=== PATIENT | male | born 2000 | race Hispanic/Latino ===

== ENCOUNTER 2021-09-23 23:49 | Inpatient (IN) | payer MEDICAID, SELFPAY ==
[2021-09-24] MEDS ORDERED: Acetaminophen 500 MG TAB ONE (00:34)
[2021-09-24 01:04] LABS: INR-International Normal Ratio 1.2; PTT 33.2 sec (22.9-36.1); Prothrombin Time 15.7 sec (12.0-14.7)
[2021-09-24 01:20] LABS: ALT (SGPT) 38 U/L (8-55); AST (SGOT) 18 U/L (5-34); Albumin 4.3 g/dL (3.5-5.0); Alkaline Phosphatase 103 U/L (40-110); Anion Gap 15 mmol/L (10-20); BUN (Urea Nitrogen) 9 mg/dL (8.9-20.6); Calc. Creatinine Clearance 0 mL/min (70-130); Carbon Dioxide 22 mmol/L (22-29); Chloride 105 mmol/L (98-107); Globulin 2.4 g/dL (2.4-3.5); Glucose 98 mg/dL (70-105); Lipase 6 U/L (8-78); Potassium 3.2 mmol/L (3.5-5.1); Protein, Total 6.7 g/dL (6.0-8.3); Sodium 139 mmol/L (136-145)
[2021-09-24 02:08] LABS: Hemoglobin 5.3 g/dL (14.0-18.0); Mean Corpuscular HGB CONC 25.6 g/dL (32.0-36.0); Mean Corpuscular Hemoglobin 14.3 pg (27.0-31.0); Mean Corpuscular Volume 55.7 fL (78.0-98.0); RBC Distribution Width 21.2 % (11.5-14.5); White Blood Cell (WBC) Count 10.4 thou/uL (4.8-10.8)
[2021-09-24 02:17] LABS: #Eosinphils 0.1 thou/uL (0.0-0.7); #Lymphocytes 1.4 thou/uL (1.20-3.40); #Neutrophils 7.9 thou/uL (1.40-6.50); %Basophils 0.4 % (0.0-1.0); %Eosinophils 0.7 % (0.0-10.0); %Lymphocytes 13.4 % (21.0-51.0); %Neutrophils 75.5 % (42.0-75.0); Band 4 % (5-11); Hypochromia MODERATE=16-30 cells (100X) (0-5/hpf); Lymphocytes 21 % (21-51); MDiff Complete? YES; Mean Platelet Volume 6.8 fL (7.4-10.4); Microcytosis SLIGHT = 6-15 cells (100X) (0-5/hpf); Monocytes 10 % (0-10); Neutrophil 65 % (42-75); Platelet Count 307 thou/uL (130-400); Platelet Morphology Comment Appears Adequate; Polychromasia SLIGHT = 2-3 cells (100X) (0-2/hpf)
[2021-09-24 02:54] LABS: Bilirubin 1+ (Negative); Blood, Urine Negative (Negative); Clarity Clear (Clear); Glucose, Urine (Dipstick) Normal (Negative); Ketone, Urine 10 mg/dL (Negative); Leukocyte Negative Leu/uL (Negative); Nitrite Negative (Negative); Protein, Urine (Dipstick) 20 mg/dL (Neg-Trace); Urobilinogen Greater than 12 mg/dL (Less than 2)
[2021-09-24 02:55] LABS: Specific Gravity, Urine Greater than 1.060 (1.002-1.036)
[2021-09-24] MEDS ORDERED: Ondansetron PF 4 MG/2 ML Vial IVP PRN (03:12)
[2021-09-24 03:14] LABS: SARS-CoV-2 NAA Rapid Test Not Detected (NotDetected)
[2021-09-24] MEDS ORDERED: diphenhydrAMINE 50 MG/ML VIAL IVP SCH (03:30)
[2021-09-24 03:33] VITALS: BMI 19.3
[2021-09-24 04:26] LABS: #Eosinphils 0.1 thou/uL (0.0-0.7); #Lymphocytes 1.3 thou/uL (1.20-3.40); #Monocytes 1.2 thou/uL (0.11-0.59); #Neutrophils 10.7 thou/uL (1.40-6.50); %Basophils 0.3 % (0.0-1.0); %Eosinophils 0.4 % (0.0-10.0); %Lymphocytes 9.6 % (21.0-51.0); %Monocytes 9.1 % (0.0-10.0); %Neutrophils 80.7 % (42.0-75.0); Hemoglobin 5.9 g/dL (14.0-18.0); Mean Corpuscular HGB CONC 26.2 g/dL (32.0-36.0); Mean Corpuscular Volume 53.3 fL (78.0-98.0); Mean Platelet Volume 7.4 fL (7.4-10.4); Platelet Count 426 thou/uL (130-400); RBC Distribution Width 21.8 % (11.5-14.5); Red Blood Cell (RBC) Count 4.19 mill/uL (4.70-6.10); White Blood Cell (WBC) Count 13.2 thou/uL (4.8-10.8)
[2021-09-24 04:44] LABS: ALT (SGPT) 46 U/L (8-55); AST (SGOT) 30 U/L (5-34); Albumin 4.4 g/dL (3.5-5.0); Alkaline Phosphatase 113 U/L (40-110); Anion Gap 13 mmol/L (10-20); BUN (Urea Nitrogen) 11 mg/dL (8.9-20.6); Bilirubin, Total 2.2 mg/dL (0.2-1.2); Calc. Creatinine Clearance 136 mL/min (70-130); Calcium 9.5 mg/dL (7.8-10.44); Carbon Dioxide 23 mmol/L (22-29); Chloride 106 mmol/L (98-107); Globulin 2.5 g/dL (2.4-3.5); Glucose 148 mg/dL (70-105); Potassium 3.2 mmol/L (3.5-5.1); Protein, Total 6.9 g/dL (6.0-8.3); Sodium 139 mmol/L (136-145)
[2021-09-24] MEDS ORDERED: Famotidine 20 MG TAB PO SCH (09:00)
[2021-09-24 10:35] LABS: Hemoglobin 6.8 g/dL (14.0-18.0)
[2021-09-24 11:16] LABS: Reticulocyte Count 1.2 % (0.5-1.5)
[2021-09-24 11:33] LABS: Iron 21 ug/dL (65-175); Iron Binding Capacity, Total 363 mcg/dL (261-462)
[2021-09-24 11:59] LABS: Ferritin Less than 2.00 ng/mL (22-322); Thyroid Stimulating Hormone 0.3425 uIU/mL (0.35-4.94); Vitamin B12 932 pg/mL (211-911)
[2021-09-24] MEDS ORDERED: Iopamidol-370 76% 500 ML 1 ML ONE (14:24)
[2021-09-24] MEDS: Potassium Chloride 10 MEQ in Dextrose 5%-Lactated Ringers 1,000 ML IV SCH ×2 (14:46→14:51)
[2021-09-24] MEDS ORDERED: Potassium Chloride 20 MEQ TAB PO SCH (15:00)
[2021-09-24] MEDS ORDERED: Iron, Sodium Ferric Gluconate 250 MG in Sodium Chloride 0.9% 100 ML IVPB SCH (15:00)
[2021-09-24] MEDS ORDERED: Iron, Sodium Ferric Gluconate 250 MG in Sodium Chloride 0.9% 250 ML 250 ML IVPB SCH (15:15)
[2021-09-24 15:38] LABS: Free T4 (Free Thyroxine) 0.98 ng/dL (0.70-1.48)
[2021-09-24 16:26] LABS: Hemoglobin 8.2 g/dL (14.0-18.0)
[2021-09-24] MEDS ORDERED: Bisacodyl 10 MG SUPP PR PRN (16:38)
[2021-09-24] MEDS: Fleet Enema 133 ML BOT PR SCH ×3 (18:08→23:25)
[2021-09-25] MEDS ORDERED: Ferrous Gluconate 324 MG TAB PO SCH (08:00)
[2021-09-25] MEDS: Polyethylene Glycol 3350 17 GM Packet PO SCH ×2 (08:48→19:59)
[2021-09-25] MEDS: Folic Acid 1 MG TAB PO SCH (08:48)
[2021-09-25] MEDS: Pantoprazole 40 MG VIAL IVP SCH (08:49)
[2021-09-25 11:48] LABS: Anion Gap 10 mmol/L (10-20); BUN (Urea Nitrogen) 7 mg/dL (8.9-20.6); Calc. Creatinine Clearance 157 mL/min (70-130); Calcium 8.4 mg/dL (7.8-10.44); Carbon Dioxide 24 mmol/L (22-29); Chloride 109 mmol/L (98-107); Glucose 86 mg/dL (70-105); Potassium 3.5 mmol/L (3.5-5.1); Sodium 139 mmol/L (136-145)
[2021-09-25] MEDS ORDERED: GoLYTELY 4,000 ml Bottle PO SCH (12:00)
[2021-09-25] MEDS: Fleet Enema 133 ML BOT PR SCH ×4 (12:02→18:59)
[2021-09-25 12:22] LABS: #Basophils 0.1 thou/uL (0.0-0.2); #Eosinphils 0.2 thou/uL (0.0-0.7); #Monocytes 0.8 thou/uL (0.11-0.59); %Basophils 0.9 % (0.0-1.0); %Eosinophils 2.2 % (0.0-10.0); %Lymphocytes 12.8 % (21.0-51.0); %Monocytes 9.5 % (0.0-10.0); %Neutrophils 74.6 % (42.0-75.0); Elliptocytes MODERATE= 6-15 cells (100X) (0-1/hpf); Hemoglobin 8.2 g/dL (14.0-18.0); Hypochromia MODERATE=16-30 cells (100X) (0-5/hpf); MDiff Complete? YES; Mean Corpuscular HGB CONC 27.7 g/dL (32.0-36.0); Mean Corpuscular Hemoglobin 18.3 pg (27.0-31.0); Mean Corpuscular Volume 66.1 fL (78.0-98.0); Mean Platelet Volume 7.6 fL (7.4-10.4); Microcytosis SLIGHT = 6-15 cells (100X) (0-5/hpf); Platelet Count 290 thou/uL (130-400); Platelet Morphology Comment Appears Adequate; Poikilocytosis MODERATE=16-30 cells (100X) (0-5/hpf); Polychromasia SLIGHT = 2-3 cells (100X) (0-2/hpf); RBC Distribution Width 32.3 % (11.5-14.5); Red Blood Cell (RBC) Count 4.45 mill/uL (4.70-6.10)
[2021-09-26 06:43] LABS: Anion Gap 11 mmol/L (10-20); BUN (Urea Nitrogen) 6 mg/dL (8.9-20.6); Calc. Creatinine Clearance 177 mL/min (70-130); Calcium 8.6 mg/dL (7.8-10.44); Carbon Dioxide 26 mmol/L (22-29); Chloride 107 mmol/L (98-107); Glucose 79 mg/dL (70-105); Potassium 3.7 mmol/L (3.5-5.1); Sodium 140 mmol/L (136-145)
[2021-09-26] MEDS: Folic Acid 1 MG TAB PO SCH (08:02)
[2021-09-26] MEDS: Polyethylene Glycol 3350 17 GM Packet PO SCH (08:02)
[2021-09-26] MEDS: Pantoprazole 40 MG VIAL IVP SCH (08:02)
[2021-09-26 08:10] LABS: #Basophils 0.1 thou/uL (0.0-0.2); #Eosinphils 0.2 thou/uL (0.0-0.7); #Lymphocytes 1.3 thou/uL (1.20-3.40); #Monocytes 0.6 thou/uL (0.11-0.59); #Neutrophils 2.2 thou/uL (1.40-6.50); %Basophils 1.2 % (0.0-1.0); %Eosinophils 4.8 % (0.0-10.0); %Monocytes 14.2 % (0.0-10.0); %Neutrophils 49.7 % (42.0-75.0); Anisocytosis MODERATE=16-30 cells (100X) (0-5/hpf); Elliptocytes SLIGHT = 2-5 cells (100X) (0-1/hpf); Hemoglobin 8.3 g/dL (14.0-18.0); Hypochromia MODERATE=16-30 cells (100X) (0-5/hpf); MDiff Complete? YES; Mean Corpuscular HGB CONC 27.5 g/dL (32.0-36.0); Mean Corpuscular Hemoglobin 18.3 pg (27.0-31.0); Mean Corpuscular Volume 66.5 fL (78.0-98.0); Mean Platelet Volume 7.4 fL (7.4-10.4); Microcytosis MODERATE=15-30 cells (100X) (0-5/hpf); Platelet Count 260 thou/uL (130-400); Platelet Morphology Comment Appears Adequate; Poikilocytosis SLIGHT = 6-15 cells (100X) (0-5/hpf); RBC Distribution Width 32.6 % (11.5-14.5); Red Blood Cell (RBC) Count 4.52 mill/uL (4.70-6.10); White Blood Cell (WBC) Count 4.5 thou/uL (4.8-10.8)
[2021-09-26] MEDS: Fleet Enema 133 ML BOT PR SCH (12:00)
[2021-09-26] MEDS ORDERED: PROPOFOL 200 MG/20 ML VIAL ONE (12:43)
[2021-09-26 17:43] VITALS: BP 111/63; TEMP 97.9
== END 2021-09-26 17:52 | disposition home or self-care (01) | DRG 394 ==
LOC: ERS 23:49 → T4-A 09-24 02:38
PROVIDERS: ADMIT Internal Medicine; ATTEND Internal Medicine
PROC: 30233N1 Transfusion of Nonautologous Red Blood Cells into Peripheral Vein, Percutaneous Approach (ICD-10-PCS; principal; 2021-09-24)
PROC: 0DB98ZX Excision of Duodenum, Via Natural or Artificial Opening Endoscopic, Diagnostic (ICD-10-PCS; 2021-09-26)
PROC: 0DBP8ZX Excision of Rectum, Via Natural or Artificial Opening Endoscopic, Diagnostic (ICD-10-PCS; 2021-09-26)
DX: K62.6 Ulcer of anus and rectum (principal); D62 Acute posthemorrhagic anemia; K56.41 Fecal impaction; Z20.822 Contact with and (suspected) exposure to COVID-19; E87.6 Hypokalemia; D50.9 Iron deficiency anemia, unspecified
CPT/HCPCS: 36415; 36430; 74177; 80048; 80053; 81003; 82274; 82607; 82728; 82746; 83010; 83540; 83550; 83615; 83690; 84439; 84443; 84481; 85025; 85046; 85060; 85610; 85652; 85730; 86140; 86850; 86880; 86900; 86901; 88305; C9113; J1200; J2704; J2916; J7050; P9016; Q9967; U0002